=== PATIENT | female | born 1980 | race Caucasian/White ===

== ENCOUNTER 2020-12-16 12:36 | Emergency (ER) | payer OTHER ==
[~2020-12-16] VITALS: Ht 172.7 cm; Wt 90.9 kg
[2020-12-16] MEDS ORDERED: ONDANSETRON ODT 4 MG TAB.RAPDIS. PO ONE (13:15)
[2020-12-16] MEDS ORDERED: KETOROLAC 30 MG/ML VIAL. IM ONE (13:15)
--- NOTE | 2020-12-16 13:30 | PHYS DOC ---
Past Medical History Past Medical History: Bipolar, Seizure Past Surgical History: Tubal ligation Past Surgical History Sinus surgery Smoking Status: Former Smoker Alcohol Use: Occasionally Drug Use: None General Adult EDM: Chief Complaint: HEAD INJURY/TRAUMA HPI: HPI: Patient is a 40 year old female who presents with fall. The patient says she was out drinking with friends last 12/11/2020 when she fell and hit the back of her head on a windowsill. She sustained a small laceration on the back of her skull which is healed however the patient says that she has had a progressive headache since the time of the fall with associated nausea, dizziness, and balance issues. She denies vomiting, vision changes, or excessive sensitivity to light. She states been on medication for epilepsy and bipolar disorder, but is not on blood thinners. She has taken [id number] pain medication which has not helped. She has no history of prior TBI. Review of Systems: Review of Systems: Constitutional: Denies fever or chills Eyes: Denies redness or eye pain HENT: Denies nasal congestion or sore throat Respiratory: Denies cough or shortness of breath Cardiovascular: Denies chest pain or palpitations GI: Denies abdominal pain, notes some nausea; denies vomiting : Denies dysuria or hematuria Musculoskeletal: Denies back pain or neck pain Integument: Denies rash or skin lesions; reports scalp laceration/'abrasion Neurologic: Admits progressive headache, denies focal weakness or sensory changes Complete systems were reviewed and found to be within normal limits, except as documented in this note. Current Medications: Current Medications Medications (Trade) Dose Ordered Sig/[facility] Start Time Stop Time Status Last Admin Dose Admin Ketorolac Tromethamine (Toradol 30mg Vial) 30 mg 1X ONCE 12/16/20 13:15 12/16/20 13:16 UNV Ondansetron HCl (Zofran Odt) 4 mg 1X ONCE 12/16/20 13:15 12/16/20 13:16 UNV Physical Exam: PE: Constitutional: Well developed, well nourished, no acute distress, non-toxic appearance HENT: Normocephalic, atraumatic, TMs clear bilaterally, no andre sign Eyes: PERRL, EOMI, conjunctiva normal, no discharge, no nystagmus Neck: Normal range of motion, no midline tenderness, supple Lungs & Thorax: No respiratory distress, equal chest rise and fall Abdomen: Soft, no tenderness Skin: Warm, dry, no erythema, no rash Extremities: No tenderness, ROM intact, no edema Neurologic: Alert and oriented X 3, normal motor function, normal sensory function, no focal deficits noted Psychologic: Affect normal, judgment normal Current Patient Data: Labs: Laboratory Tests Test 12/16/20 13:04 POC Urine HCG, Qualitative Hcg negative (Negative) EKG: EKG: [] Radiology/Procedures: Radiology/Procedures: PROCEDURE: CT HEAD WO CONTRAST INDICATION: Reason: headache, hx of blunt trauma 5 days ago / Spl. Instructions: / History: COMPARISON: None. TECHNIQUE: Axial CT images obtained through the head without intravenous contrast. One or more of the following individualized dose reduction techniques were utilized for this examination: 1. Automated exposure control; 2. Adjustment of the mA and/or kV according to patient size; 3. Use of iterative reconstruction technique. FINDINGS: No intracranial hemorrhage. No midline shift. Basal cisterns patent. Ventricles and sulci are unremarkable. No acute osseous abnormality. Orbits and paranasal sinuses unremarkable. IMPRESSION: * No acute intracranial hemorrhage. * Scattered foci of low density of the white matter. Nonspecific but can be sequela of chronic small vessel ischemic disease or migraine. Electronically signed by: George Jorge MD (12/16/2020 2:02 PM) [id number] Course & Med Decision Making: Course & Med Decision Making Pertinent Labs and Imaging studies reviewed. (See chart for details) Patient presents with report of head contusion several days ago. Patient currently neurologically intact. Patient does have a small abrasion to the back of her head. Tetanus updated. Urine negative. CT head without acute finding. Symptomatic treatment provided. Patient stable for discharge with outpatient follow-up with PCP. Discussed findings and plan with patient, who acknowledges understanding and agreement. Diana Disclaimer: Diana Disclaimer: This electronic medical record was generated, in whole or in part, using a voice recognition dictation system. Departure Departure Impression: Primary Impression: Post concussive syndrome Additional Impression: Scalp abrasion Qualified Codes: S00.01XA - Abrasion of scalp, initial encounter Disposition: 01 HOME SELF CARE/HOMELESS Condition: STABLE Patient Instructions: Abrasion, [id number]-[id number], Concussion and Brain Injury, Yxyo-ab-Kbjy, Facial or Scalp Contusion, [id number]-iz-[id number] Additional Instructions: Can also take over the counter Ibuprofen for pain or discomfort. Scripts Ondansetron (ONDANSETRON ODT) 4 Mg Tab.rapdis 1 TAB PO PRN Q6-8HRS PRN for NAUSEA, #16 TAB Prov: BURAK WRIGHT DO 12/16/20 Butalb/Acetaminophen/Caffeine ([id number]-[id number] 50-325-40) 1 Each Tablet 1 EACH PO Q6HRS PRN for HEADACHE, #10 TAB Prov: BURAK WRIGHT DO 12/16/20 NIHSS Stroke Scale NIH Stroke Scale: NIH Stroke Scale Response (Comments) Value Level of Consciousness: 0 Alert/Responsive 0 LOC Questions: 0 Answers both correctly 0 LOC Commands: 0 Performs both tasks 0 Best Gaze: 0 Normal 0 Visual: 0 No visual loss 0 Facial Palsy: 0 Normal, symmetrical 0 Motor - Left Arm 0 No drift 0 Motor - Right Arm 0 No drift 0 Motor - Left Leg 0 No drift 0 Motor: Right Leg 0 No drift 0 Limb Ataxia: 0 Absent 0 Sensory: 0 No loss 0 Best Language: 0 Normal 0 Dysathria: 0 Normal 0 Extinction and Inattention: 0 Normal 0 Total 0 BURAK WRIGHT DO Dec 16, 2020 13:30
--- NOTE | 2020-12-16 14:05 | RAD ---
INDICATION: Reason: headache, hx of blunt trauma 5 days ago / Spl. Instructions: / History: COMPARISON: None. TECHNIQUE: Axial CT images obtained through the head without intravenous contrast. One or more of the following individualized dose reduction techniques were utilized for this examinat ion: 1. Automated exposure control; 2. Adjustment of the mA and/or kV according to patient size; 3 . Use of iterative reconstruction technique. FINDINGS: No intracranial hemorrhage. No midline shift. Basal cisterns patent. Ventricles and sulci are unremarkable. No acute osseous abnormality. Orbits and paranasal sinuses unremarkable. IMPRESSION: * No acute intracranial hemorrhage. * Scattered foci of low density of the white matter. Nonspecific but can be sequela of chronic small vessel ischemic disease or migraine. Electronically signed by: George Jorge MD (12/16/2020 2:02 PM) [id number]
[2020-12-16] MEDS ORDERED: BUTA1TAB23 PO (14:29)
[2020-12-16] MEDS ORDERED: ONDA4TAB12 PO (14:29)
[2020-12-16] MEDS ORDERED: DIPH,PERTUSS(ACELL),TET VAC/PF 0.5 ML SYRINGE. VAX IM ONE (14:30)
[2020-12-16 14:38] VITALS: BP 135/72
== END 2020-12-16 14:38 | disposition home or self-care (01) ==
LOC: ER 12:36
DX: S00.01XA Abrasion of scalp, initial encounter (principal); F07.81 Postconcussional syndrome; F31.9 Bipolar disorder, unspecified; Z87.891 Personal history of nicotine dependence; W18.09XA Striking against other object with subsequent fall, initial encounter; Y93.89 Activity, other specified; Y92.89 Other specified places as the place of occurrence of the external cause; Y99.8 Other external cause status
CPT/HCPCS: 70450; 81025; 90471; 90715; 96372; 99285; J1885

== ENCOUNTER 2021-09-09 21:23 | Emergency (ER) | payer OTHER ==
[~2021-09-09] VITALS: Ht 172.7 cm; Wt 84.1 kg
[~2021-09-09 21:23] MED LIST: BUTA1TAB23 PO; ONDA4TAB12 PO
--- NOTE | 2021-09-09 21:33 | PHYS DOC ---
Past Medical History Past Medical History: Bipolar, Seizure Past Surgical History: Tubal ligation Additional Past Surgical Histo: sinus surgery Smoking Status: Former Smoker Alcohol Use: Occasionally Drug Use: None General Adult EDM: Chief Complaint: SHORTNESS OF BREATH HPI: HPI: Patient is a 41 year old female who presents with dyspnea, fatigue, nausea, anorexia, loss of sense of taste and smell, as well as dry cough. She reports generalized malaise and fatigue. She denies vomiting. She has abdominal pain. She denies chest pain. She denies hemoptysis. She has had fevers and chills. She reports diffuse myalgias. She was diagnosed with Covid on Saturday of this week. She had been symptomatic since last weekend. She works as a para at a school. She is not vaccinated against Covid. She was seen yesterday in the ER in [place] for the same thing. She reports that "nothing" was done. However, it sounds like she was given IV fluids, labs, and chest x-ray. She reports that she was told to come back if she gets worse. She reports persistent symptoms, feeling slightly worse. She reports that she does feel dizzy/lightheaded. No syncope reported. She does have a headache. She took Tylenol about 2 hours ago. She is afebrile here. She has had no episodes of hypoxia. EMS reported oxygen saturation 100% on room air in route, and she remained so here as well. She denies any previous history of respiratory issues, asthma. She quit tobacco about 1 month ago. She has not reached out to her primary care physician for discussion of Covid treatment and/or symptoms of Covid. She she denies any recent travel, surgery, hospitalization. Review of Systems: Review of Systems: Constitutional: Fever, chills, myalgia, fatigue Eyes: Denies change in visual acuity. [] HENT: Nasal congestion. Denies sore throat. Respiratory: Ports dry cough, dyspnea. Cardiovascular: Denies chest pain or edema. [] GI: Denies abdominal pain, nausea, vomiting, diarrhea, constipation : Denies urinary symptoms. Musculoskeletal: Denies focal joint swelling or pain. Reports diffuse myalgias. Integument: Denies rash. [] Neurologic: Reports headache. Denies numbness, tingling, motor weakness. De nies syncope. She does report some lightheadedness. Psychiatric: Denies depression or anxiety. [] Heart Score: C/O Chest Pain: No Risk Factors: Risk Factors: DM, Current or recent (<one month) smoker, HTN, HLP, family history of CAD, obesity. Risk Scores: Score 0 - 3: 2.5% MACE over next 6 weeks - Discharge Home Score 4 - 6: 20.3% MACE over next 6 weeks - Admit for Clinical Observation Score 7 - 10: 72.7% MACE over next 6 weeks - Early Invasive Strategies Allergies: Allergies: Allergies Coded Allergies Type Severity Reaction Last Updated Verified sulfamethoxazole Allergy Intermediate vomiting 12/16/20 No trimethoprim Allergy Intermediate vomiting 12/16/20 No doxycycline Adverse Reaction Intermediate rash, swelling 12/16/20 Yes prochlorperazine Adverse Reaction Intermediate jittery 12/16/20 Yes Physical Exam: PE: Constitutional: Well developed, well nourished, no acute distress, non-toxic appearance. [] HENT: Normocephalic, atraumatic, mucous membranes are moist. Eyes: Clear clear, anicteric Neck: Normal range of motion, no tenderness, supple, no stridor. Trachea midline. No JVD. Cardiovascular:Heart rate regular rhythm, no murmur , +2 radial and posterior tibial pulses bilaterally. Lungs & Thorax: Bilateral breath sounds clear to auscultation, no tachypnea. No retractions. She speaks in full and clear sentences. No rales, rhonchi or wheezes. No stridor. No evidence of respiratory distress. Abdomen: Abdomen is soft, nondistended, nontender to palpation, normal bowel sounds, no palpable mass organomegaly. Skin: Warm, dry, no erythema, no rash. [] Back: No tenderness, no CVA tenderness. Full range of motion, no step-offs or deformity. Extremities: No tenderness, no cyanosis, no clubbing, ROM intact, no edema. No calf tenderness. Neurologic: Alert and oriented X 3, normal motor function, normal sensory function, no focal deficits noted. Speech is clear and fluent. No facial asymmetry. Her gait is steady. Psychologic: Affect is relatively flat. She is cooperative. [] EKG: EKG: EKG is interpreted at 2132 Rhythm is sinus Rate is 85 bpm [place] is normal No STEMI Radiology/Procedures: Radiology/Procedures: IMAGING REPORT Signed PATIENT: VERO BATRES ACCOUNT: [id number] : 1980 LOCATION: ER AGE: 41 SEX: F EXAM STATUS: PRE ER ORD. PHYSICIAN: LEELA NAIDU DO REASON: cough, COVID PROCEDURE: PORTABLE CHEST 1V Study: XR CHEST 1V Indication: Cough. Covid. Comparison: 09/08/2021 Findings: Within normal limits cardiomediastinal silhouette and jovani. Unchanged aeration pattern of the lungs from the recent comparison. No confluent airspace infiltrate, pleural effusion or pneumothorax. Impression: No radiographic evidence for pneumonia at this time. No newly seen abnormality f rom the 09/08/2021 comparison. Electronically signed by: AJIT CHARLES MD (09/09/2021 10:28 PM) [facility] DICTATED and SIGNED BY: AJIT CHARLES MD DATE: 09/09/21 0 Course & Med Decision Making: Course & Med Decision Making Pertinent Labs and Imaging studies reviewed. (See chart for details) IV fluid normal saline bolus is given. She is resting comfortably. She is manifesting no evidence of respiratory distress, no tachypnea. Her oxygen saturation has not dropped below 100% on room air. Her vital signs are stable. Her chest x-ray is unremarkable her laboratory evaluations are unremarkable. UA appears contaminated. She is not experiencing any urinary tract infection symptoms. I did explain that urine culture is pending, she should be notified of any need to give antibiotics based on these results, if warranted. I have repeatedly explained her that there is nothing specific to be done to treat Covid at this juncture. She is stable. There is no indication for admission. No specific medications required for treatment of stable Covid. She told the nurse, but did not tell me, that her primary care physician reportedly called in a Z-Alvaro, and she is taking this. I explained that this is not a necessary medication, there is no evidence that this is helpful at all, and this is actually potentially detrimental treatment in settings of outpatient Covid. Diana Disclaimer: Diana Disclaimer: This electronic medical record was generated, in whole or in part, using a voice recognition dictation system. Departure Departure Impression: Primary Impression: COVID-19 virus infection Disposition: HOME / SELF CARE / HOMELESS Condition: STABLE Referrals: JERARDO VANEGAS (PCP) Additional Instructions: You have been tested for or diagnosed with COVID-19. It is an infection caused by a new type of coronavirus. COVID-19 will cause cold-like or mild flu symptoms in most. It can cause more severe symptoms like problems breathing in some. There is no treatment for COVID-19. The body will clear the infection over time. Self-care will help to ease discomfort. Steps to Take: Self-Care Rest as needed. Healthy habits may help you feel better. Steps include: Choose healthy foods including fruits and vegetables. Drink water throughout the day. Get plenty of sleep each night. If you smoke, try to quit. It may ease breathing. Avoid alcohol. Keep Others Healthy The virus can spread to others. Droplets are released every time you sneeze or cough. The droplets can get into the mouth, nose, or eyes of people near you and lead to infection. To lower the chances of spreading COVID-19 to others: Stay at home until your doctor has said it is safe to leave. If you tested positive this will mean staying isolated until both of the following are true: At least 7 days have passed since the start of illness. You are free of fever for at least 72 hours without the use of medicine. During this time: - Avoid public areas, events, or transportation. Do not return to work or school until your doctor has said it is safe to do so. - Call ahead if you need to go to a medical center. Let them know you may have COVID-19. It will help them guide you where to go. They may also ask you to wear a facemask when you come to the office. - If you call for emergency medical services, let them know you may have COVID- 19. While at home: - Try to avoid close contact with others. Stay about 6 feet away. - If possible, spend most of your time in a separate room from others. - Use a face mask if you will be in close contact with others such as sharing a room or vehicle. - Have someone wipe down common surfaces in the home. Use household therapist phys every day on areas like doorknobs, counters, or sinks. - Cough or sneeze into a tissue. Throw the tissue away right after use. If a tissue is not available, cough or sneeze into your elbow. - Wash your hands often. Wash them after sneezing or coughing. Use soap and water and wash for at least 20 seconds. Alcohol based hand cotton cleaner can be used if soap and water is not available. - Do not prepare food for others. Avoid sharing personal items like forks, spoons, or toothbrushes. - Avoid close contact with pets while you are sick. There is no evidence of the virus passing to pets. This is a safety step until more is known about this virus. Isolation can be frustrating. Social interaction can help. Keep in touch with friends and family through phone and tech options. You can still interact with others in your home, just keep a safe distance of about 6 feet. Follow-up: Your doctors office will check in with you to see if there are any changes in your health. You may be asked to keep track of symptoms to share with them. They will also let you know when you are clear to be in public again. Problems to Look Out For: Contact your doctor if your recovery is not going as you expect. Get emergency care if you have problems such as: - Trouble breathing - Nonstop chest pain or pressure - Changes in awareness, confusion, or problems waking - Lips or face have bluish color - Worsening of symptoms If you think you have an emergency, call for emergency medical services right away. As taken from [facility] Your oxygen level today is normal. Your vital signs are stable. Her chest x- ray does not show any abnormal findings. Your symptoms are all very expected with a Covid infection. There is no specific treatment for Covid. Please stay hydrated. I recommend getting plenty of rest. You may take Tylenol and ibuprofen for pain or fever. Please return to the ER for any severe chest pain, uncontrolled vomiting, with dehydration, severe abdominal pain, if you develop severe evidence of respiratory distress, with oxygen level persistently below 90% or for any other concerns, return. You may obtain finger pulse oximeter to check your oxygen via [facility] or outpatient pharmacies. Please do not take azithromycin/Z-Alvaro, as there is no evidence that this is helpful in Covid infections, and in fact it has been proven to be harmful in many situations. You have a viral infection, not a bacterial infection, therefore antibiotics are absolutely unnecessary and potentially dangerous. LEELA NAIDU DO Sep 09, 2021 21:33
[2021-09-09] MEDS ORDERED: IV NORMAL SALINE 1000ML BAG 1,000 ML IV ONE (22:00)
[2021-09-09] MEDS ORDERED: ONDANSETRON PF 4 MG/2 ML VIAL. IVP ONE (22:00)
[2021-09-09 22:18] LABS: BASO % 1 % (0-3); EOS % 0 % (0-3); LYMPH % 27 % (24-48); MEAN CORPUSCULAR HEMOGLOBIN 28 pg (25-35); MEAN CORPUSCULAR HGB CONC 34 g/dL (31-37); MEAN CORPUSCULAR VOLUME 81 fL (79-100); MONO # 0.5 x10^3/uL (0.0-1.1); MONO % 15 % (0-9); NEUT # 2.1 x10^3/uL (1.8-7.7); NEUT % 58 % (31-73); PLATELET COUNT 219 x10^3/uL (140-400); RED BLOOD COUNT 4.32 x10^6/uL (3.50-5.40); RED CELL DISTRIBUTION WIDTH 13.8 % (11.5-14.5); WHITE BLOOD COUNT 3.6 x10^3/uL (4.0-11.0)
[2021-09-09 22:18] LABS: BILIRUBIN,URINE NEGATIVE (NEG); CLARITY,URINE CLEAR; COLOR,URINE YELLOW; NITRITE,URINE NEGATIVE (NEG); PH,URINE 7.5 (<5.0-8.0); PROTEIN,URINE NEGATIVE (NEG-TRACE); UROBILINOGEN,URINE 0.2 mg/dL (0.2 mg/dL)
[2021-09-09 22:24] LABS: CALCIUM 8.4 mg/dL (8.5-10.1); CREATININE 0.8 mg/dL (0.6-1.0); GFR 79.4; MAGNESIUM 1.9 mg/dL (1.8-2.4); POTASSIUM 3.7 mmol/L (3.5-5.1)
--- NOTE | 2021-09-09 22:30 | RAD ---
Study: XR CHEST 1V Indication: Cough. Covid. Comparison: 09/08/2021 Findings: Within normal limits cardiomediastinal silhouette and jovani. Unchanged aeration pattern of the lungs from the recent comparison. No confluent airspace infiltrate, pleural effusion or pneumothorax. Impression: No radiographic evidence for pneumonia at this time. No newly seen abnormality from the 09/08/2021 co mparison. Electronically signed by: AJIT CHARLES MD (09/09/2021 10:28 PM) [facility]
[2021-09-09 22:33] LABS: BACTERIA,URINE MODERATE /HPF (0-FEW); RBC,URINE 0 /HPF (0-2)
[2021-09-09 22:57] VITALS: BP 145/89
--- NOTE | 2021-09-10 00:32 | EKG ---
[facility] [address] [place] [address] Test Date: 2021-09-09 Test Time: 21:31:15 Pat Name: VERO BATRES Department: Room: Gender: F Community Development Planner: : 1980 Requested By: LEELA NAIDU Order Number: [id number] Reading MD: Trevon Riley Measurements Intervals [place] Rate: 85 P: -15 [place]: 138 QRS: 82 QRSD: 118 T: 10 QT: 376 QTc: 453 Interpretive Statements SINUS RHYTHM NORMAL ECG RI6.01 No previous ECG available for comparison Electronically Signed On 09-10-2021 7:12:28 INVESTOR RELATIONS COORDINATOR by Trevon Riley
== END 2021-09-09 23:24 | disposition home or self-care (01) ==
LOC: ER 21:23
DX: U07.1 COVID-19 (principal); F31.9 Bipolar disorder, unspecified; Z88.1 Allergy status to other antibiotic agents; Z88.2 Allergy status to sulfonamides; Z88.8 Allergy status to other drugs, medicaments and biological substances
CPT/HCPCS: 36415; 71045; 80048; 81001; 81025; 83735; 85025; 87086; 93005; 96361; 96374; 99285; J2405; J7030